=== PATIENT | female | born 1990 | race Caucasian/White ===

== ENCOUNTER 2016-08-13 14:22 | Emergency (ER) | payer OTHER ==
[2016-08-13 15:03] VITALS: BP 131/52
--- NOTE | 2016-08-13 18:37 | UC ---
Skin Complaint HPI - HPI Summary HPI Summary: red raised itchy rash, right axilla, groin, and inner thighs, no new expose, soap or medications, is on Lamictial, (no change for about 18 months) - History of Current Complaint Chief Complaint: UCRash Time Seen by Provider: 08/13/16 18:30 Stated Complaint: RASH-SPREADING Hx Obtained From: Patient Hx Last Menstrual Period: 07/28/16 ?: No Onset/Duration: Sudden Onset, Lasting Days - 2, Still Present, Worse Since - today Timing: Constant Onset Severity: Moderate Current Severity: Moderate Location: Diffuse Character: Pruritus, Redness, Raised Aggravating: Nothing Alleviating: Nothing Associated Signs & Symptoms: Positive: Negative - Allergy/Home Medications Allergies/Adverse Reactions: Allergies Allergy/AdvReac Type Severity Reaction Status Date / Time No Known Allergies Allergy Verified 04/08/16 20:33 Review of Systems Constitutional: Negative Skin: Rash - as described Eyes: Negative ENT: Negative Respiratory: Negative Cardiovascular: Negative Gastrointestinal: Negative Genitourinary: Negative Motor: Negative Neurovascular: Negative Musculoskeletal: Negative Neurological: Negative Psychological: Negative All Other Systems Reviewed And Are Negative: Yes PMH/Surg Hx/FS Hx/Imm Hx Psychological History Of: Reports: Anxiety - Surgical History Surgical History: None - Family History Known Family History: Positive: Other - depression - Social History Occupation: Employed Full-time Lives: With Family Alcohol Use: None Substance Use Type: None Smoking Status (MU): Never Smoked Tobacco Physical Exam Triage Information Reviewed: Yes Appearance: Well-Appearing, No Pain Distress, Well-Nourished Vital Signs: Initial Vital Signs Temp 99.7 F 08/13/16 14:58 Pulse 68 08/13/16 14:58 Resp 18 08/13/16 14:58 BP 131/52 08/13/16 14:58 Pulse Ox 98 08/13/16 14:58 Vital Signs Reviewed: Yes Eye Exam: Normal Eyes: Positive: Conjunctiva Clear ENT Exam: Normal ENT: Positive: Normal ENT inspection, Hearing grossly normal. Negative: Nasal congestion, Nasal drainage, Tonsillar swelling, Tonsillar exudate, Trismus, Muffled/hoarse voice Dental Exam: Normal Neck exam: Normal Neck: Positive: Supple, Nontender, No Lymphadenopathy Respiratory Exam: Normal Respiratory: Positive: Chest non-tender, Lungs clear, Normal breath sounds, No respiratory distress, No accessory muscle use Cardiovascular Exam: Normal Cardiovascular: Positive: RRR, No Murmur, Pulses Normal, Brisk Capillary Refill Musculoskeletal Exam: Normal Musculoskeletal: Positive: Strength Intact, ROM Intact, No Edema Neurological Exam: Normal Neurological: Positive: Alert, Muscle Tone Normal Psychological Exam: Normal Psychological: Positive: Normal Response To Family Skin: Positive: rashes Course/Dx - Course Course Of Treatment: benadryl, prednisone, follow with pcp and provider who rx lamictal - Differential Diagnoses - Skin Complaint Differential Diagnoses: Contact Dermatitis, Drug Rash, Impetigo, Urticaria - Diagnoses Provider Diagnoses: urticaria - Physician Notification/Consults Discussed Patient Care With: De. Lee Time Discussed With Above Provider: 18:00 Discharge - Discharge Plan Condition: Stable Disposition: HOME Prescriptions: Methylprednisolone [Medrol Dosepak 4 MG*] 1 packet PO .SEE YOMI INSTRUCTION #1 yomi Patient Education Materials: Urticaria (ED) Referrals: Sergey Cardozo MD [Primary Care Provider] - 5 Days Additional Instructions: Call Your DrMaxat Family and Children in the Morning to discuss the possibility of this rash being caused by you Lamictal
[2016-08-13] MEDS ORDERED: diPHENhydraMINE PO* 50 MG PO ONE (18:47)
[2016-08-13] MEDS ORDERED: predniSONE TAB* 20 MG PO ONE (18:47)
== END 2016-08-13 19:00 | disposition home or self-care (01) ==
LOC: UCEAST 14:22
DX: L50.9 Urticaria, unspecified (principal)
CPT/HCPCS: 99212; A9270-GY; G0463; J7512

== ENCOUNTER 2017-12-30 23:41 | Emergency (ER) | payer MEDICARE, MEDICAID ==
--- NOTE | 2017-12-31 00:03 | ED ---
Throat Pain/Nasal Congestion - HPI Summary HPI Summary: Complains of possible insect in her right ear. Denies any pain or loss of hearing. Crunching sound in her right ear - History of Current Complaint Chief Complaint: EDEarPain Time Seen by Provider: 12/30/17 23:46 Hx Obtained From: Patient Severity: Mild - Allergies/Home Medications Allergies/Adverse Reactions: Allergies Allergy/AdvReac Type Severity Reaction Status Date / Time No Known Allergies Allergy Verified 12/30/17 23:45 Home Medications: Home Medications PARoxetine HCL TAB* [Paxil TAB*] 20 mg PO DAILY 12/30/17 [History Confirmed ] PMH/Surg Hx/FS Hx/Imm Hx Endocrine/Hematology History: Denies: Hx Anticoagulant Therapy Cardiovascular History: Denies: Hx Cardiac Arrest History: Denies: Hx Dialysis Neurological History: Denies: Hx CVA Psychiatric History: Reports: Hx Anxiety Infectious Disease History: No Infectious Disease History: Denies: History Other Infectious Disease, Traveled Outside the [place] in Last 30 Days - Family History Known Family History: Positive: Other - depression - Social History Alcohol Use: None Substance Use Type: Reports: None Smoking Status (MU): Never Smoked Tobacco Review of Systems Constitutional: Negative Eyes: Negative ENT: Other Cardiovascular: Negative Respiratory: Negative Gastrointestinal: Negative Genitourinary: Negative Musculoskeletal: Negative Skin: Negative Neurological: Negative Psychological: Normal All Other Systems Reviewed And Are Negative: Yes Physical Exam - Summary Physical Exam Summary: Positive small insect sitting on right tympanic membrane. No evidence of trauma. No evidence of loss of hearing. Triage Information Reviewed: Yes Vital Signs On Initial Exam: Initial Vitals Temp Pulse Resp BP Pulse Ox 98.0 F 92 17 101/75 99 12/30/17 23:42 12/30/17 23:42 12/30/17 23:42 12/30/17 23:42 12/30/17 23:42 Vital Signs Reviewed: Yes Appearance: Positive: Well-Appearing Skin: Positive: Warm Head/Face: Positive: Normal Head/Face Inspection Eyes: Positive: Normal Neck: Positive: Supple Respiratory/Lung Sounds: Positive: Clear to Auscultation Cardiovascular: Positive: Normal Abdomen Description: Positive: Nontender Musculoskeletal: Positive: Normal Neurological: Positive: Normal Psychiatric: Positive: Normal AVPU Assessment: Alert - [place] Coma Scale Best Eye Response: 4 - Spontaneous Best Motor Response: 6 - Obeys Commands Best Verbal Response: 5 - Oriented Coma Scale Total: 15 Procedures - Procedure Summary Procedure Summary: Positive insect in right ear. Ear canal was filled with lidocaine 1%. Bug came out when lidocaine was drained. No evidence of trauma or remaining foreign body in right ear. Diagnostics - Vital Signs Vital Signs Temp Pulse Resp BP Pulse Ox 12/30/17 23:42 98.0 F 92 17 101/75 99 - Laboratory Lab Statement: Any lab studies that have been ordered have been reviewed, and results considered in the medical decision making process. EENT Course/Dx - Course Course Of Treatment: Complains of possible insect in her right ear. Denies any pain or loss of hearing. Crunching sound in her right ear. PE:Positive small insect sitting on right tympanic membrane. No evidence of trauma. No evidence of loss of hearing. Insect removed. No evidence of trauma or foreign body remaining in ear. No loss of hearing. - Diagnoses Provider Diagnoses: Foreign body of ear, right Discharge - Sign-Out/Discharge Documenting (check all that apply): Patient Departure - Discharge Plan Condition: Stable Disposition: HOME Patient Education Materials: Ear Foreign Body (ED) Referrals: Sergey Cardozo MD [Primary Care Provider] - - Billing Disposition and Condition Condition: STABLE Disposition: Home
[2017-12-31 00:10] VITALS: BP 107/82
== END 2017-12-31 00:09 | disposition home or self-care (01) ==
LOC: ED 23:41
DX: T16.1XXA Foreign body in right ear, initial encounter (principal); X58.XXXA Exposure to other specified factors, initial encounter; Y93.9 Activity, unspecified; Y92.9 Unspecified place or not applicable; F41.9 Anxiety disorder, unspecified; Z81.8 Family history of other mental and behavioral disorders
CPT/HCPCS: 69200; 99282

== ENCOUNTER → 2019-02-28 | Day surgery (SDC) | payer MEDICARE ==
[~2019-02-28] MED LIST: Buffered Lidocaine 1% SYRIN* 1 ML/SYRINGE INTRADERM ONE; Dexamethasone TAB* 4 MG ONE; Dexamethasone TAB* 4 MG PO ONE; DiMENhydriNATE IV* 50 MG/ML VIAL IV PUSH PRN; Famotidine IV* 10 MG/ML 2 ML (20 mg) IV ONE; Famotidine IV* 10 MG/ML 2 ML (20 mg) ONE; HYDROmorphone INJ1* 1 MG/ML SYRINGE IV PRN; KETAMINE HCL* 50 MG/ML 10 ML VIAL ONE; Ketorolac INJ* 30 MG/ML 1 ML VIAL ONE; Lactated Ringers 1000 ML Bag* 1,000 ML IV SCH; Lidocaine 2% PF * 5 ML VIAL ONE; Midazolam* 1 MG/ML 5 ML VIAL (5 MG) ONE; Naloxone* 0.4 MG/ML 1 ML VIAL IV PRN; Ondansetron ODT TAB* 4 MG ONE; Ondansetron ODT TAB* 4 MG PO ONE; PROCHLORPERAZINE INJ 5 MG/ML 2 ML VIAL IV PRN; PROCHLORPERAZINE INJ 5 MG/ML 2 ML VIAL ONE; Propofol* 10 MG/ML 20 ML BTL ONE; Scopolamine 1.5 mg* PATCH TRANSDERM PRN; Scopolamine PATCH Remove* 1 NOTE MISC PATCH OFF ONE; fentaNYL* 50 MCG/ML 2 ML VIAL (100 MCG VIAL) ONE; oxyCODONE/Acetamin 5/325 MG* TAB ONE; oxyCODONE/Acetamin 5/325 MG* TAB PO PRN
[2019-02-28 10:57] LABS: Hematocrit 36 % (35-47); Hemoglobin 11.7 g/dL (12.0-16.0); Mean Corpuscular HGB Conc 33 g/dL (31-36); Mean Corpuscular Hemoglobin 26 pg (27-31); Mean Corpuscular Volume 79 fL (80-97); Mean Platelet Volume 8.4 fL (7.4-10.4); Platelet Count 308 10^3/uL (150-450); Red Blood Count 4.48 10^6 /uL (3.70-4.87); Red Cell Distribution Width 17 % (10-15); White Blood Count 6.6 10^3/uL (3.5-10.8)
[2019-02-28] MEDS: fentaNYL* 50 MCG/ML 2 ML VIAL (100 MCG VIAL) IV PRN ×2 (12:19→12:44)
[2019-02-28 13:38] VITALS: BP 123/77
--- NOTE | 2019-02-28 17:24 | OP ---
DATE OF OPERATION: 02/28/19 - [facility] DATE OF : 89 SURGEON: Cherri Lora MD ANESTHESIOLOGIST: Dr. Mccracken. ANESTHESIA: General endotracheal anesthesia. PRE-OP DIAGNOSIS: Irregular heavy vaginal bleeding x5 months. POST-OP DIAGNOSES: 1. Irregular heavy vaginal bleeding x5 months. 2. 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 OPERATIVE PROCEDURES: Dilation, hysteroscopy, polypectomy, curettage. I was unable to insert an IUD due to the septum. ESTIMATED BLOOD LOSS: Less than 20 cc. SPECIMEN: Endometrial polyp, endometrial curettings. FLUIDS: Per Anesthesia. DRAINS: None. MYOSURE DEFICIT: 500 cc. That is likely an overestimation due to a large amount of fluid before it was zeroed. FINDINGS: The cervix is midline. Uterus is midline. There appears to be a midline septum versus a bicornuate uterus, though left side is slightly larger than the right. Each tubal ostia was visualized on each side. No adnexal masses were palpated. There is a short distance between the internal os and the bottom of the septum. COMPLICATIONS: None. COUNTS: Sponge, lap, and needle count correct x2. CONDITION: The patient tolerated the procedure well and was brought to recovery room awake and in stable condition. DESCRIPTION OF PROCEDURE: The patient was brought to the operating room. When general anesthesia was found to be adequate, the patient was prepped and draped in the usual sterile fashion in the dorsal lithotomy position. Exam under anesthesia was performed after time-out with the above findings noted. Weighted speculum was placed in the vagina. It was a single midline cervix. The anterior lip of the cervix was grasped with the single-tooth tenaculum and the cervix was very easily dilated with the Ortega dilators. The hysteroscope was introduced with the above findings noted. The hysteroscope was maneuvered to each side of the septum and each tubal ostia was visualized. The decision was made not to place an IUD as it was felt it would sit too low likely within the cervix. Each side of the uterus was narrow. Curettage was performed, trying to get curettings from both the left and right side. Curettings and endometrial polyp from the MyoSure were sent to pathology. The MyoSure polypectomy was done under direct visualization underneath where the septum ends. Complications none. Sponge count was correct x2. Excellent hemostasis at the cervix where the tenaculum was removed. Sponge count was correct x2 and the patient was brought to recovery room awake and in stable condition. [id number]/[facility] #: [id number] MTDKing
== END | disposition home or self-care (01) ==
LOC: OR 09:44
PROVIDERS: ATTEND Obstetrics & Gynecology
DX: N92.1 Excessive and frequent menstruation with irregular cycle (principal); E11.9 Type 2 diabetes mellitus without complications
CPT/HCPCS: 36415; 81025; 85027; 86850; 86900; 86901; 88305; A9270-GY; J0780; J1885; J2250; J2704; J3010; J8540

== ENCOUNTER 2019-04-12 18:56 | Emergency (ER) | payer MEDICARE ==
--- NOTE | 2019-04-12 19:11 | ED ---
Seizure - HPI Summary HPI Summary: Per EMS patient was found down on the ground by taking a bus stop this evening, patient had been incontinent and was postictal. Patient states history of seizures, complains only of fatigue here in the ED. Denies any other symptoms pain or injury. Patient not taking meds for seizure. Patient's mother called to say patient has history of pseudoseizures. Mom states they had evaluated today, and patient stormed out of the house. Patient denies medical history. - History Of Current Complaint Chief Complaint: EDSeizure Time Seen by Provider: 04/12/19 19:08 Hx Obtained From: Patient, Family/Regional Branch Manager Onset/Duration: Sudden Onset Severity Of Seizure: Self-Limited Alleviating Factor(s): Spontaneous Resolution Associated Signs And Symptoms: Incontinence Of Bladder Related History: Pseudoseizures - Allergies/Home Medications Allergies/Adverse Reactions: Allergies Allergy/AdvReac Type Severity Reaction Status Date / Time No Known Allergies Allergy Verified 04/12/19 20:20 PMH/Surg Hx/FS Hx/Imm Hx Endocrine/Hematology History: Reports: Hx Anemia - takes iron Denies: Hx Anticoagulant Therapy, Hx Diabetes - prediabetes Cardiovascular History: Denies: Hx Cardiac Arrest, Hx Pacemaker/ICD History: Denies: Hx Dialysis, Hx Renal Disease Sensory History: Denies: Hx Contacts or Glasses, Hx Hearing Aid Opthamlomology History: Denies: Hx Contacts or Glasses EENT History: Denies: Hx Deafness Neurological History: Reports: Hx Migraine - hx of, Hx Seizures - psuedo seizures 2016 last time Denies: Hx CVA Psychiatric History: Reports: Hx Anxiety, Hx Depression Denies: Hx Panic Disorder - Cancer History Hx Chemotherapy: No Hx Radiation Therapy: No - Surgical History Surgery Procedure, Year, and Place: HYSTEROSCOPY AND CURETTAGE-[address] Bob Taylor Anesthesia Reactions: No Infectious Disease History: Unable to Obtain/Confirm Infectious Disease History: Denies: History Other Infectious Disease, Traveled Outside the [place] in Last 30 Days - Family History Known Family History: Positive: Other - depression - Social History Alcohol Use: None Substance Use Type: Reports: None Smoking Status (MU): Never Smoked Tobacco Review of Systems Positive: Fatigue Eyes: Negative ENT: Negative Respiratory: Negative Gastrointestinal: Negative Genitourinary: Negative Musculoskeletal: Negative Skin: Negative Neurological: Negative Psychological: Normal All Other Systems Reviewed And Are Negative: Yes Physical Exam Triage Information Reviewed: Yes Vital Signs On Initial Exam: Initial Vitals Temp Pulse Resp BP Pulse Ox 99.3 F 102 18 115/76 97 04/12/19 18:58 04/12/19 18:58 04/12/19 18:58 04/12/19 18:58 04/12/19 18:58 Vital Signs Reviewed: Yes Appearance: Positive: Well-Appearing Skin: Positive: Warm Head/Face: Positive: Normal Head/Face Inspection Eyes: Positive: Normal ENT: Positive: Normal ENT inspection Dental: Negative: Dental Fracture @, Bleeding Neck: Positive: Supple Respiratory/Lung Sounds: Positive: Clear to Auscultation Cardiovascular: Positive: Normal Abdomen Description: Positive: Nontender Musculoskeletal: Positive: Normal Neurological: Positive: Normal Psychiatric: Positive: Normal AVPU Assessment: Alert - [place] Coma Scale Best Eye Response: 4 - Spontaneous Best Motor Response: 6 - Obeys Commands Best Verbal Response: 5 - Oriented Coma Scale Total: 15 Procedures - Sedation Patient Received Moderate/Deep Sedation with Procedure: No Diagnostics - Vital Signs Vital Signs Temp Pulse Resp BP Pulse Ox 04/12/19 18:58 99.3 F 102 18 115/76 97 - Laboratory Result Diagrams: 04/12/19 19:21 04/12/19 19:21 Lab Statement: Any lab studies that have been ordered have been reviewed, and results considered in the medical decision making process. Course/Dx - Course Course Of Treatment: Per EMS patient was found down on the ground by taking a bus stop this evening, patient had been incontinent and was postictal. Patient states history of seizures, complains only of fatigue here in the ED. Denies any other symptoms pain or injury. Patient not taking meds for seizure. Patient's mother called to say patient has history of pseudoseizures. Mom states they had evaluated today, and patient stormed out of the house. Patient denies medical history. Vital signs within normal limits. Labs unremarkable. No seizures here in the ED. - Diagnoses Provider Diagnoses: Altered mental status Discharge ED - Sign-Out/Discharge Documenting (check all that apply): Patient Departure - Discharge Plan Condition: Stable Disposition: HOME Patient Education Materials: Altered Mental Status (ED) Referrals: Sergey Cardozo MD [Primary Care Provider] - Additional Instructions: Follow-up with primary care. Return to ED for any new or worsening symptoms. - Billing Disposition and Condition Condition: STABLE Disposition: Home - Attestation Statements Provider Attestation: I was available for consultation for this patient. I did not evaluate the patient or participate in any medical decision making or disposition decisions unless I am specifically named in the chart as having consulted on the patient. If I have consulted on the patient, please see my own ED note on the patient encounter. Geovanny Jerome MD
[2019-04-12 19:28] LABS: ABS Basophils 0.1 10^3/ul (0-0.2); ABS Eosinophils 0.2 10^3/ul (0-0.6); ABS Lymphocytes 2.3 10^3/ul (1.0-4.8); ABS Monocytes 0.8 10^3/ul (0-0.8); ABS Neutrophils 4.5 10^3/ul (1.5-7.7); Eosinophil % 2.2 %; Hematocrit 39 % (35-47); Hemoglobin 13.2 g/dL (12.0-16.0); Lymphocyte % 29.3 %; Mean Corpuscular HGB Conc 34 g/dL (31-36); Mean Corpuscular Hemoglobin 27 pg (27-31); Mean Corpuscular Volume 81 fL (80-97); Platelet Count 289 10^3/uL (150-450); Red Blood Count 4.87 10^6 /uL (3.70-4.87); Red Cell Distribution Width 18 % (10-15); White Blood Count 7.9 10^3/uL (3.5-10.8)
[2019-04-12 19:44] LABS: ALT 18 U/L (7-52); AST 16 U/L (13-39); Albumin 4.2 g/dL (3.2-5.2); Albumin/Globulin Ratio 1.3 (1-3); Alkaline Phosphatase 90 U/L (34-104); Anion Gap 10 mmol/L (2-11); BUN/Creatinine Ratio 17.6 (8-20); Blood Urea Nitrogen 12 mg/dL (6-24); C Reactive Protein 7.84 mg/L (<8.01); CO2 Carbon Dioxide 20 mmol/L (22-32); Calcium 9.6 mg/dL (8.6-10.3); Chloride 106 mmol/L (101-111); EGFR African American 124.7 (>60); Globulin 3.2 g/dL (2-4); Glucose 114 mg/dL (70-100); Sodium 136 mmol/L (135-145); Total Protein 7.4 g/dL (6.4-8.9)
[2019-04-12 19:50] LABS: HCG Pregnancy < 0.60 mIU/mL
[2019-04-12 19:51] LABS: Alcohol < 10 mg/dL (<10)
[2019-04-12 20:06] LABS: TSH (Thyroid Stimulating Horm) 2.13 mcIU/mL (0.34-5.60)
--- OUTSIDE RECORDS SUMMARY | 2019-04-12 20:23 | XMS REPORT | Continuity of Care Document ---
:1990 External Reference #:[id number] Author Name Cherri Lora MD (transmitted by agent of provider Leni Penny) Address [address] [facility] [address] [place] [address] Care Team Providers Name Role Phone Sergey Cardozo MD - Internal Care Team Information Horticultural Manager Medicine Problems Description No Information Available Social History Type Date Description Comments Sex Unknown Tobacco Use Start: Unknown Never Smoked Cigarettes Smoking Status Reviewed: 02/13/19 Never Smoked Cigarettes ETOH Use Never used alcohol Tobacco Use Start: Unknown Patient has never smoked Recreational Drug Use Denies Drug Use Exercise Type/Frequency Does not exercise Allergies, Adverse Reactions, Alerts Description No Known Drug Allergies Medications Active Medications SIG Qnty Indications Ordering Provider Date Ibuprofen one tablet by 12tabs Cherri Lora MD 02/13/2019 600mg mouth q6 as Tablets needed pain Oxycodone-Acetaminop one tablet by 8tabs Cherri Lora MD 02/13/2019 hen mouth q6 hours 5-325mg Tablets as needed strong pain Nortrel 1/35 (28) take 1 tablet by 84Tablet Cherri Lora MD 01/31/2019 mouth every day 1-35mg-mcg Tablets Vitamin D Take One Capsule 8caps Nia Wisdom, 12/18/2018 (Ergocalciferol) By Mouth Once A BILINGUAL SALES CONSULTANT-Cde Week For 8 Weeks 31520Cnrg Capsules [facility] Slow Release Take 1 Tablet By 90Tablet Nia Wisdom, 12/17/2018 Iron Mouth Every Day BILINGUAL SALES CONSULTANT-Cde 143(45Fe) mg Tablets ER Iron (Ferrous 1 by mouth every 30tabs D50.0 Nia Wisdom, 12/06/2018 Sulfate) day BILINGUAL SALES CONSULTANT-Cde 142(45Fe) mg Tablets ER Advil as needed Unknown 200mg Tablets Paxil 1 by mouth every Unknown 30mg Tablets day History Medications Nortrel (28) take one pill 28tabs Nia Wisdom, 01/10/2019 - daily BILINGUAL SALES CONSULTANT-Cde 01/31/2019 1-35mg-mcg Tablets Levonorgestrel/Ethin Take 1 pill by 28tabs Cherri Lora MD 12/24/2018 - yl Estradiol mouth daily at 01/10/2019 the same time 0.1-20mg-mcg Tablets [facility] Slow Release Take 1 Tablet By 90Tablet Nia Wisdom, 12/15/2018 - Iron Mouth Every Day BILINGUAL SALES CONSULTANT-Cde 12/17/2018 143(45Fe) mg Tablets ER Immunizations Description No Information Available Vital Signs Date Vital Result Comment 02/13/2019 12:55pm Height 67 inches 5'7" Weight 263.38 lb Heart Rate 86 /min BP Systolic 111 mmHg BP Diastolic 70 mmHg O2 % BldC Oximetry 98 % BMI (Body Mass Index) 41.2 kg/m2 01/23/2019 1:52pm Height 67 inches 5'7" Weight 267.00 lb Heart Rate 79 /min BP Systolic Sitting 114 mmHg Lue BP Diastolic Sitting 74 mmHg Lue O2 % BldC Oximetry 99 % room air BMI (Body Mass Index) 41.8 kg/m2 Results Test Date Facility Test Result H/L Range Note CBC Auto 01/10/2019 [facility] White Blood 5.6 10^3/uL Normal 3.5-10.[address] [place] [address] [phone] Red Blood Count 3.68 10^6/uL Low 3.70-4.87 Hemoglobin 9.5 g/dL Low 12.0-16.0 Hematocrit 30 % Low 35-47 Mean Corpuscular Volume 81 fL Normal 80-97 Mean Corpuscular Hemoglobin 26 pg Low 27-31 Mean Corpuscular HGB Conc 32 g/dL Normal 31-36 Red Cell Distribution Width 16 % High 10-15 Platelet Count 380 10^3/uL Normal 150-450 Mean Platelet Volume 7.6 fL Normal 7.4-10.4 Abs Neutrophils 3.5 10^3/uL Normal 1.5-7.7 Abs Lymphocytes 1.4 10^3/uL Normal 1.0-4.8 Abs Monocytes 0.5 10^3/uL Normal 0-0.8 Abs Eosinophils 0.1 10^3/uL Normal 0-0.6 Abs Basophils 0.1 10^3/uL Normal 0-0.2 Abs Nucleated RBC 0.0 10^3/uL Granulocyte % 63.5 % Lymphocyte % 25.3 % Monocyte % 8.3 % Eosinophil % 1.6 % Basophil % 1.3 % Nucleated Red Blood Cells % 0.1 Laboratory test 01/10/2019 [facility] Ferritin 10.3 ng/mL Low 11-[address] [place] [address] [phone] Laboratory test 12/24/2018 [facility] Vitamin D 15.8 ng/mL Low 20-50 [address] Total 25(Oh) [place] [address] [phone] Hemoglobin A1c (Glyco HGB) 5.8 % High 4.0-5.6 2 Laboratory test 12/06/2018 [facility] Hemoglobin A1c 6.1 % High 4.0-5.[address] (Glyco HGB) [place] [address] [phone] Vitamin D Total 25(Oh) 17.1 ng/mL Low 20-50 4 CBC Auto 12/05/2018 [facility] White Blood 8.5 10^3/uL Normal 3.5-10.[address] [place] [address] [phone] Red Blood Count 3.98 10^6/uL Normal 3.70-4.87 Hemoglobin 10.6 g/dL Low 12.0-16.0 Hematocrit 32 % Low 35-47 Mean Corpuscular Volume 79 fL Low 80-97 Mean Corpuscular Hemoglobin 27 pg Normal 27-31 Mean Corpuscular HGB Conc 33 g/dL Normal 31-36 Red Cell Distribution Width 15 % Normal 10-15 Platelet Count 376 10^3/uL Normal 150-450 Mean Platelet Volume 7.4 fL Normal 7.4-10.4 Abs Neutrophils 5.4 10^3/uL Normal 1.5-7.7 Abs Lymphocytes 2.2 10^3/uL Normal 1.0-4.8 Abs Monocytes 0.7 10^3/uL Normal 0-0.8 Abs Eosinophils 0.2 10^3/uL Normal 0-0.6 Abs Basophils 0.1 10^3/uL Normal 0-0.2 Abs Nucleated RBC 0.0 10^3/uL Granulocyte % 64.0 % Lymphocyte % 25.5 % Monocyte % 7.8 % Eosinophil % 2.0 % Basophil % 0.7 % Nucleated Red Blood Cells % 0.1 Comp Metabolic 12/05/2018 [facility] Sodium 137 mmol/L Normal 135-[address] [place] [address] [phone] Potassium 4.6 mmol/L Normal 3.5-5.0 Chloride 104 mmol/L Normal 101-111 Co2 Carbon Dioxide 24 mmol/L Normal 22-32 Anion Gap 9 mmol/L Normal 2-11 Glucose 161 mg/dL High 70-100 Blood Urea Nitrogen 13 mg/dL Normal 6-24 Creatinine 0.81 mg/dL Normal 0.51-0.95 BUN/Creatinine Ratio 16.0 Normal 8-20 Calcium 9.7 mg/dL Normal 8.6-10.3 Total Protein 7.2 g/dL Normal 6.4-8.9 Albumin 4.3 g/dL Normal 3.2-5.2 Globulin 2.9 g/dL Normal 2-4 Albumin/Globulin Ratio 1.5 Normal 1-3 Total Bilirubin 0.30 mg/dL Normal 0.2-1.0 Alkaline Phosphatase 117 U/L High 34-104 Alt 21 U/L Normal 7-52 Ast 16 U/L Normal 13-39 Egfr Non- 84.2 >60 Egfr 101.9 >60 5 Laboratory 12/05/2018 [facility] TSH (Thyroid 1.24 Normal 0.34 -5.60 test finding [address] Stim Horm) mcIU/[place] [address] [phone] 1 Total 25-Hydroxyvitamin D2 and D3 (25-OH-VitD) <10 ng/mL (severe deficiency) 10-19 ng/mL (mild to moderate deficiency) 20-50 ng/mL (optimum levels) 51-80 ng/mL (increased risk of hypercalciuria) >80 ng/mL (toxicity possible) 2 Therapeutic target for the treatment of diabetes mellitus patients is <7% HBA1C, and in selective patients <6.0%. Please refer to [place] Diabetes Association diabetic care guidelines for further information. 3 Therapeutic target for the treatment of diabetes mellitus patients is <7% HBA1C, and in selective patients <6.0%. Please refer to [place] Diabetes Association diabetic care guidelines for further information. 4 Total 25-Hydroxyvitamin D2 and D3 (25-OH-VitD) <10 ng/mL (severe deficiency) 10-19 ng/mL (mild to moderate deficiency) 20-50 ng/mL (optimum levels) 51-80 ng/mL (increased risk of hypercalciuria) >80 ng/mL (toxicity possible) 5 Because ethnic data is not always readily available, this report includes an eGFR for both -Americans and non- Americans. The National Kidney Disease Education Program (NKDEP) does not endorse the use of the MDRD equation for patients that are not between the ages of 18 and 70, are , have extremes of body size, muscle mass, or nutritional status, or are non- or non-. According to the National Kidney Foundation, irrespective of diagnosis, the stage of the disease is based on the level of kidney function: Stage Description GFR(mL/min/1.73 m(2)) 1 Kidney damage with normal or decreased GFR 90 2 Kidney damage with mild decrease in GFR 60-89 3 Moderate decrease in GFR 30-59 4 Severe decrease in GFR 15-29 5 Kidney failure <15 (or dialysis) Procedures Description No Information Available Medical Devices Description No Information Available Encounters Type Date Location Provider Dx Diagnosis Office Visit 01/23/2019 [facility] Nia Wisdom, N92.0 Excessive and 1:30p [facility] frequent menstruation with regular cycle Office Visit 01/10/2019 [facility] Nia Wisdom, N92.0 Excessive and 4:00p [facility] BILINGUAL SALES CONSULTANT-Cde frequent menstruation with regular cycle D50.0 Iron deficiency anemia secondary to blood loss (chronic) Office Visit 12/06/2018 2:00p [facility] Nia Wisdom, E66.09 Other obesity [facility] due to excess calories N92.0 Excessive and frequent menstruation with regular cycle D50.0 Iron deficiency anemia secondary to blood loss (chronic) R73.01 Impaired fasting glucose Office Visit 11/22/2018 10:00a [facility] Nia Wisdom, Z01.419 Encntr for safety and security officer [facility] BILINGUAL SALES CONSULTANT-Cde exam (general) (routine) w/o abn findings N92.0 Excessive and frequent menstruation with regular cycle E66.09 Other obesity due to excess calories Z68.41 Body mass index (BMI) 40.0-44.9, adult Assessments Date Code Description Provider 01/23/2019 N92.0 Excessive and frequent menstruation with Nia Artis, BILINGUAL SALES CONSULTANT -Cde regular cycle 01/10/2019 N92.0 Excessive and frequent menstruation with Nia Artis, BILINGUAL SALES CONSULTANT -Cde regular cycle 01/10/2019 D50.0 Iron deficiency anemia secondary to blood Nia Artis, BILINGUAL SALES CONSULTANT-Cde loss (chronic) 12/06/2018 E66.09 Other obesity due to excess calories Nia Artis, BILINGUAL SALES CONSULTANT- Cde 12/06/2018 N92.0 Excessive and frequent menstruation with Nia Artis, BILINGUAL SALES CONSULTANT -Cde regular cycle 12/06/2018 D50.0 Iron deficiency anemia secondary to blood Nia Artis, BILINGUAL SALES CONSULTANT-Cde loss (chronic) 12/06/2018 R73.01 Impaired fasting glucose Nia Artis, BILINGUAL SALES CONSULTANT-Cde 11/22/2018 Z01.419 Encntr for safety and security officer exam (general) (routine) w/o Nia Artis , BILINGUAL SALES CONSULTANT-Cde abn findings 11/22/2018 N92.0 Excessive and frequent menstruation with Nia Artis, BILINGUAL SALES CONSULTANT -Cde regular cycle 11/22/2018 E66.09 Other obesity due to excess calories Nia Artis, BILINGUAL SALES CONSULTANT- Cde 11/22/2018 Z68.41 Body mass index (BMI) 40.0-44.9, adult Nia Artis, BILINGUAL SALES CONSULTANT- Cde Plan of Treatment Future Appointment(s):03/07/2019 1:30 pm - Cherri Lora MD at [facility]02/28/2019 9:30 am - Cherri Lora MD at [facility] Functional Status Description No Information Available Mental Status Description No Information Available Referrals Refer to Reason for Referral Status Appt Date Pauline Shore MD [facility] Sent [address] [place] [address] [address] [place] [id number] [phone]
--- OUTSIDE RECORDS SUMMARY | 2019-04-12 20:23 | XMS REPORT | Continuity of Care Document ---
:1990 External Reference #:[id number] Author Name Cherri Lora MD (transmitted by agent of provider Leni Penny) Address [address] [facility] [address] [place] [address] Care Team Providers Name Role Phone Sergey Cardozo MD - Internal Care Team Information Clinical Pharmacy Specialist Medicine Problems Description No Information Available Social History Type Date Description Comments Sex Unknown Tobacco Use Start: Unknown Never Smoked Cigarettes Smoking Status Reviewed: 03/07/19 Never Smoked Cigarettes ETOH Use Never used alcohol Tobacco Use Start: Unknown Patient has never smoked Recreational Drug Use Denies Drug Use Exercise Type/Frequency Exercises regularly [facility] 01/2019 Allergies, Adverse Reactions, Alerts Description No Known [...] Wisdom, 12/18/2018 (Ergocalciferol) By Mouth Once A ASSEMBLY LINE INSPECTOR-Cde Week For 8 Weeks 40235Loil Capsules [facility] Slow Release Take 1 Tablet By 90Tablet Nia Wisdom, 12/17/2018 Iron Mouth Every Day ASSEMBLY LINE INSPECTOR-Cde 143(45Fe) mg Tablets ER Iron (Ferrous 1 by mouth every 30tabs D50.0 Nia Wisdom, 12/06/2018 Sulfate) day ASSEMBLY LINE INSPECTOR-Cde 142(45Fe) mg Tablets ER Advil as needed Unknown 200mg Tablets Paxil 1 by mouth every Unknown 30mg Tablets day History Medications Nortrel 135 (28) take one pill 28tabs Nia Wisdom, 01/10/2019 - daily ASSEMBLY LINE INSPECTOR-Cde 01/31/2019 1-35mg-mcg Tablets Levonorgestrel/Ethin Take 1 pill by 28tabs Cherri Lora MD 12/24/2018 - yl Estradiol mouth daily at 01/10/2019 the same time 0.1-20mg-mcg Tablets [facility] Slow Release Take 1 Tablet By 90Tablet Nia Wisdom, 12/15/2018 - Iron Mouth Every Day ASSEMBLY LINE INSPECTOR-Cde 12/17/2018 143(45Fe) mg Tablets ER Immunizations Description No Information Available Vital Signs Date Vital Result Comment 03/07/2019 11:26am Height 67 inches 5'7" Weight 260.00 lb Heart Rate 89 /min BP Systolic 132 mmHg BP Diastolic 89 mmHg O2 % BldC Oximetry 96 % BMI (Body Mass Index) 40.7 kg/m2 02/13/2019 12:55pm Height 67 inches 5'7" Weight 263.38 lb Heart Rate 86 /min BP Systolic 111 mmHg BP Diastolic 70 mmHg O2 % BldC Oximetry 98 % BMI (Body Mass Index) 41.2 kg/m2 Results Test Date Facility Test Result H/L Range Note Laboratory test 02/13/2019 [facility] Cytology SEE RESULT [address] [place] [address] [phone] CBC Auto Diff 01/10/2019 [facility] White Blood 5.6 10^3/uL Normal 3.5-10.[address] [place] [address] [phone] Red Blood Count 3.68 10^6/uL Low 3.70-4.87 [...] Blood Cells % 0.1 Laboratory test 01/10/2019 [facility] Ferritin 10.3 ng/mL Low 11-[address] [place] [address] [phone] Laboratory test 12/24/2018 [facility] Vitamin D 15.8 ng/mL Low 20-50 [address] Total 25(Oh) [place] [address] [phone] Hemoglobin A1c (Glyco HGB) 5.8 % High 4.0-5.6 3 Laboratory test 12/06/2018 [facility] Hemoglobin A1c 6.1 % High 4.0-5.6 [address] (Glyco HGB) [place] [address] [phone] Vitamin D Total 25(Oh) 17.1 ng/mL Low 20-50 5 CBC Auto 12/05/2018 [facility] White Blood 8.5 10^3/uL Normal 3.5-10.[address] [place] [address] [phone] Red Blood Count 3.98 10^6/uL Normal 3.70-4.87 [...] Blood Cells % 0.1 Comp Metabolic 12/05/2018 [facility] Sodium 137 mmol/L Normal 135-[address] [place] [address] [phone] Potassium 4.6 mmol/L Normal 3.5-5.0 Chloride 104 [...] Egfr Non- 84.2 >60 Egfr 101.9 >60 6 Laboratory 12/05/2018 [facility] TSH (Thyroid 1.24 Normal 0.34 -5.60 test finding [address] Stim Horm) mcIU/[place] [address] [phone] 1 SEE RESULT BELOW Name: DARLENE GONZALEZ : [address]: Cherri Lora MD Acct: [id number] Unit: [id number] AGE: 28 Location: [facility] Re02/13/19 SEX: F Status: REG REF SPEC: [id number] ESME: 02/13/19-[address]: Cherri Lora MD REQ: [id number] RECD: 02/13/19 STATUS: SOUT _ ORDERED: TP IMAGE ANALYS COMMENTS: [id number] Negative for Intraepithelial lesion or Malignancy A. Ectocervical/Endocervical Specimen Adequacy: Satisfactory of evaluation Transformation zone component identified Patient Information: HPV: Thin Layer Pap Test w/reflex to high risk HPV RNA testing when ASCUS Actual Specimen Date: 02/13/19 ?: N Post Menopausal?: N Hysterectomy?: N Signed by and Reported on: NEGIN Rubio (ASCP) 1331 This Pap test was evaluated with the assistance of the [employer] Test Imaging System. Due to cytologic findings at the paste up worker microscope, comprehensive manual rescreening by a Route Sales Person may be required. The Pap Smear is a screening test designed to aid in the detection of premalignant and malignant conditions of the uterine cervix. It is not a diagnostic procedure and should not be used as the sole means of detecting cervical cancer. Both false- positive and false- negative reports do occur. Depending on your risk status, a Pap smear should be obtained and evaluated every 1-3 years. END OF REPORT DEPARTMENT OF PATHOLOGY, [address] [place] [address] Jin Diaz M.D. Director [facility] # [id number] 2 Total 25-Hydroxyvitamin D2 and D3 (25-OH-VitD) <10 ng/mL (severe deficiency) 10-19 ng/mL (mild to moderate deficiency) 20-50 ng/mL (optimum levels) 51-80 ng/mL (increased risk of hypercalciuria) >80 ng/mL (toxicity possible) 3 Therapeutic target for the treatment of diabetes mellitus patients is <7% HBA1C, and in selective patients <6.0%. Please refer to [place] Diabetes Association diabetic care guidelines for further information. 4 Therapeutic target for the treatment of diabetes mellitus patients is <7% HBA1C, and in selective patients <6.0%. Please refer to [place] Diabetes Association diabetic care guidelines for further information. 5 Total 25-Hydroxyvitamin D2 and D3 (25-OH-VitD) <10 ng/mL (severe deficiency) 10-19 ng/mL (mild to moderate deficiency) 20-50 ng/mL (optimum levels) 51-80 ng/mL (increased risk of hypercalciuria) >80 ng/mL (toxicity possible) 6 Because ethnic data is not always readily [...] Location Provider Dx Diagnosis Office Visit 01/23/2019 [facility] Nia Wisdom, N92.0 Excessive and 1:30p [facility] ASSEMBLY LINE INSPECTOR-Cde frequent menstruation with regular cycle Office Visit 01/10/2019 [facility] Nia Wisdom, N92.0 Excessive and 4:00p [facility] ASSEMBLY LINE INSPECTOR-Cde frequent menstruation with regular cycle D50.0 Iron deficiency anemia secondary to blood loss (chronic) Office Visit 12/06/2018 2:00p [facility] [place] Wisdom, E66.09 Other obesity [facility] ASSEMBLY LINE INSPECTOR-Cde due to excess calories N92.0 Excessive and frequent menstruation with regular cycle D50.0 Iron deficiency anemia secondary to blood loss (chronic) R73.01 Impaired fasting glucose Office Visit 11/22/2018 10:00a [facility] [place] Wisdom, Z01.419 Encntr for steamblaster [facility] ASSEMBLY LINE INSPECTOR-Cde exam (general) (routine) w/o abn findings N92.0 Excessive and frequent menstruation with regular cycle E66.09 Other obesity due to excess calories Z68.41 Body mass index (BMI) 40.0-44.9, adult Assessments Date Code Description Provider 02/13/2019 N92.1 Excessive and frequent menstruation with Cherri Lora MD irregular cycle 01/23/2019 N92.0 Excessive and frequent menstruation with Nia Artis, ASSEMBLY LINE INSPECTOR -Cde regular cycle 01/10/2019 N92.0 Excessive and frequent menstruation with Nia Artis, ASSEMBLY LINE INSPECTOR -Cde regular cycle 01/10/2019 D50.0 Iron deficiency anemia secondary to blood Nia Artis, ASSEMBLY LINE INSPECTOR-Cde loss (chronic) 12/06/2018 E66.09 Other obesity due to excess calories Nia Artis, ASSEMBLY LINE INSPECTOR- Cde 12/06/2018 N92.0 Excessive and frequent menstruation with Nia Artis, ASSEMBLY LINE INSPECTOR -Cde regular cycle 12/06/2018 D50.0 Iron deficiency anemia secondary to blood Nia Artis, ASSEMBLY LINE INSPECTOR-Cde loss (chronic) 12/06/2018 R73.01 Impaired fasting glucose Nia Wisdom, ASSEMBLY LINE INSPECTOR-Cde 11/22/2018 Z01.419 Encntr for steamblaster exam (general) (routine) w/o Wendy Ferrer abn findings 11/22/2018 N92.0 Excessive and frequent menstruation with JEWEL Ferrer regular cycle 11/22/2018 E66.09 Other obesity due to excess calories BERANRD Ferrer 11/22/2018 Z68.41 Body mass index (BMI) 40.0-44.9, adult BERNARD Ferrer Plan of Treatment Future Appointment(s):03/21/2019 10:00 am - Cherri Lora MD at [facility] Functional Status Description No Information Available Mental Status Description No Information Available Referrals Refer to Reason for Referral Status Appt Date Pauline Shore MD [facility] Sent [address] [facility] [address] [place] [address] [phone]
[2019-04-12 20:41] VITALS: BP 115/95
== END 2019-04-12 20:41 | disposition home or self-care (01) ==
LOC: ED 18:56
DX: R41.82 Altered mental status, unspecified (principal); D64.9 Anemia, unspecified; F41.9 Anxiety disorder, unspecified; F32.9 Major depressive disorder, single episode, unspecified
CPT/HCPCS: 36415; 80053; 80320; 84443; 84702; 85025; 86140; 99282; G0480

== ENCOUNTER 2019-08-16 17:48 | Emergency (ER) | payer MEDICARE, OTHER ==
[2019-08-16 18:02] VITALS: BP 113/77
[2019-08-16] MEDS ORDERED: Acyclovir* 200 MG CAP PO ONE ×2 (18:23→18:24)
--- NOTE | 2019-08-16 18:25 | UC ---
Skin Complaint HPI - HPI Summary HPI Summary: started with itchy patch skin upper R back, mother has been applying neosporin, but today rash is becoming painful and spreading a bit. denies recent illness, body aches, cough, fever - History of Current Complaint Chief Complaint: UCSkin Time Seen by Provider: 08/16/19 17:59 Stated Complaint: SKIN COMPLAINT Hx Obtained From: Patient Hx Last Menstrual Period: on bc ?: No Onset/Duration: Gradual Onset Onset Severity: Mild Current Severity: Moderate Pain Intensity: 6 Location: Discrete - Upper R side back Character: Pruritus, Redness, Raised, Painful Aggravating Factor(s): Touch Alleviating Factor(s): Nothing Associated Signs & Symptoms: Positive: Negative - Allergy/Home Medications Allergies/Adverse Reactions: Allergies Allergy/AdvReac Type Severity Reaction Status Date / Time No Known Allergies Allergy Verified 04/12/19 20:20 Home Medications: Home Medications PARoxetine HCL TAB* [Paxil TAB*] 20 mg PO QAM 12/30/17 [History Confirmed ] Control 1 Tab Qam 1 tab PO QAM 02/20/19 [History Confirmed 02/28/19] Iron 65mg 65 mg PO QAM 02/20/19 [History Confirmed 02/28/19] Acyclovir* [Zovirax 400 MG TAB*] 800 mg PO SEE INSTRUCTIONS #35 tab 08/16/19 [Rx ] PMH/Surg Hx/FS Hx/Imm Hx Previously Healthy: Yes Psychological History: Anxiety, Depression Other History Of: Negative For: Anticoagulant Therapy - Surgical History Surgical History: Yes Surgery Procedure, Year, and Place: HYSTEROSCOPY AND CURETTAGE-[address] Rojas - Family History Known Family History: Positive: Other - depression - Social History Occupation: Disabled Lives: With Family Alcohol Use: None Substance Use Type: None Smoking Status (MU): Never Smoked Tobacco Review of Systems All Other Systems Reviewed And Are Negative: Yes Constitutional: Positive: Negative. Negative: Fever, Chills, Fatigue Skin: Positive: Rash Respiratory: Positive: Negative. Negative: Cough Cardiovascular: Positive: Negative Gastrointestinal: Positive: Negative Musculoskeletal: Positive: Negative. Negative: Arthralgia Neurological/Mental Status: Positive: Negative. Negative: Headache Psychological: Positive: Negative Is Patient Immunocompromised?: No Physical Exam Triage Information Reviewed: Yes Appearance: Well-Appearing, No Pain Distress, Obese Vital Signs: Initial Vital Signs Temp 98.4 F 08/16/19 17:56 Pulse 97 08/16/19 17:56 Resp 16 08/16/19 17:56 BP 113/77 08/16/19 17:56 Pulse Ox 98 08/16/19 17:56 Vital Signs Reviewed: Yes Eye Exam: Normal Eyes: Positive: Conjunctiva Clear ENT Exam: Normal ENT: Positive: Pharynx normal Respiratory Exam: Normal Respiratory: Positive: Lungs clear Cardiovascular Exam: Normal Cardiovascular: Positive: RRR Neurological Exam: Normal Neurological: Positive: Alert Psychological Exam: Normal Skin: Positive: Rashes - there is a unilateral R upper back rash: raised, macular/papular, erythemic, painful rash, no vesicles noted Course/Dx - Differential Diagnoses - Skin Complaint Differential Diagnoses: Cellulitis, Impetigo, Local Allergic Reaction, Varicella Zoster - Diagnoses Provider Diagnosis: Shingles Discharge ED - Sign-Out/Discharge Documenting (check all that apply): Patient Departure All imaging exams completed and their final reports reviewed: No Studies - Discharge Plan Condition: Good Disposition: HOME Prescriptions: Acyclovir* [Zovirax 400 MG TAB*] 800 mg PO SEE INSTRUCTIONS #35 tab Patient Education Materials: Shingles (ED) Referrals: Sergey Cardozo MD [Primary Care Provider] - 3 Days (if no better) Additional Instructions: take acyclovir as directed apply hydrocortisone cream to rash to help relieve itch and burn ibuprofen for pain as directed - Billing Disposition and Condition Condition: GOOD Disposition: Home
== END 2019-08-16 18:39 | disposition home or self-care (01) ==
LOC: UCEAST 17:48
DX: B02.9 Zoster without complications (principal); F41.9 Anxiety disorder, unspecified; F32.9 Major depressive disorder, single episode, unspecified; Z79.899 Other long term (current) drug therapy
CPT/HCPCS: 99212; A9270-GY; G0463